=== PATIENT | female | born 1960 | race Two or more races ===

== ENCOUNTER 2017-06-17 13:53 | Emergency (ER) | payer MEDICAID ==
[~2017-06-17] VITALS: Ht 160 cm; Wt 73.5 kg
[2017-06-17] MEDS ORDERED: IBUPROFEN600 MG ORAL (15:08)
[2017-06-17 15:14] VITALS: BP 160/67
--- NOTE | 2017-06-17 15:40 | Diagnostic Imaging Report ---
Indication: pain Findings: 3 views of the left hand were obtained. Normal bony mineralization and alignment are demonstrated. No acute fractures, erosions, or periosteal reaction are seen. Soft tissues are unremarkable. Impression: Negative examination of the left hand.
--- NOTE | 2017-06-17 20:45 | Emergency Room Report ---
History of Present Illness General Chief Complaint: Upper Extremity Injury Source: Patient Present Illness [facility] The patient is a 57-year-old female presenting with left hand pain. She states that she was lifting an object at home today and felt her hands twist have been uncomfortable angle. Pain is now a 10/10 dull ache to the left mid hand and does not radiate. Worse with touch and movement. She denies any previous hand injury. She denies any numbness or tingling. She denies other symptoms including N, V, F, chills, SOB, rash Allergies: Coded Allergies: MORPHINE (Verified Allergy, Severe, 06/17/17) TACHYCARDIA AND FAINTING PER PT CODEINE (Verified Allergy, Intermediate, 06/17/17) ITCHING PER PT Patient History Past Medical History: see triage record Pertinent Family History: none Last Menstrual Period: n/a Reviewed Nursing Documentation: PMH: Agreed, PSxH: Agreed Nursing Documentation-PMH Past Medical History: No History, Except For Hx Hypertension: Yes Review of Systems All Other Systems: negative except mentioned in HPI Physical Exam Vital Signs Date Time Temp Pulse Resp B/P (MAP) Pulse Ox O2 Delivery O2 Flow Rate FiO2 06/17/17 14:24 97.3 82 21 160/67 96 Room Air Sp02 EP Interpretation: reviewed, normal General Appearance: no apparent distress, alert, GCS 15, non-toxic Head: normocephalic, atraumatic Eyes: bilateral eye normal inspection, bilateral eye PERRL ENT: hearing grossly normal, normal pharynx, no angioedema, normal voice Musculoskeletal: back normal, digits/nails normal, gait/station normal, normal range of motion, tender - TTP over the L 3rd Neurologic: alert, oriented x3, responsive, motor strength/tone normal, sensory intact, speech normal Psychiatric: judgement/insight normal, memory normal, mood/affect normal, no suicidal/homicidal ideation Skin: normal color, no rash, warm/dry, well hydrated Procedures Splinting Splinting : Consent: Verbal Location: L arm Pre-Made Type: plastic Splint: volar Pre-Proc Neuro Vasc Exam: normal Post-Proc Neuro Vasc Exam: normal Patient Tolerated: Well Complications: None Medical Decision Making PA Attestation Dr. Estrella is my supervising physician. Patient management was discussed with my supervising physician Diagnostic Impression: Primary Impression: Sprain of hand, left Qualified Codes: S63.92XA - Sprain of unspecified part of left wrist and hand , initial encounter ER Course The patient is a 57-year-old female presenting with left hand pain Ddx considered include but not limited to sprain/strain, fracture, contusion PE: NAD Musculoskeletal: There is tenderness to palpation over the left third mid metacarpal. No obvious deformity. Full active range of motion of the wrist and fingers. Sensation intact. No ecchymosis. X-ray of the hand is unremarkable. Volar splint is placed and the patient will follow up with primary doctor Other X-Ray Diagnostic Results Other X-Ray Diagnostic Results : X-Ray ordered: L hand # of Views/Limited Vs Complete: 3 View Indication: Pain EP Interpretation: Yes Interpretation: no dislocation, no soft tissue swelling, no fractures Impression: No acute disease Interpreting ER Provider: Samuel Estrella MD PA Scribe Text I am acting as scribe for my supervising physician. My supervising physician's interpretation of the L hand xrays are there are no fractures, dislocations or soft tissue swelling. Last Vital Signs Date Time Temp Pulse Resp B/P (MAP) Pulse Ox O2 Delivery O2 Flow Rate FiO2 06/17/17 15:14 97.3 21 160/67 96 Room Air 06/17/17 14:24 82 Status: improved Disposition: HOME, SELF-CARE Condition: Improved Scripts Ibuprofen* (MOTRIN*) 600 Mg Tablet 600 MG ORAL Q8H Y for For Pain, #30 TAB 0 Refills Prov: OLY CUMMINS 06/17/17 Referrals: MELANIEREFERRING (PCP) Patient Instructions: Wrist Sprain, Cast or Splint Care Additional Instructions: I discussed my findings with the patient. All questions and concerns have been answered. Treatment and medication compliance have been addressed. I advised the patient that they need to follow up with PMD in 3-5 days. Return to ED if pain remains or worsens, numbness or tingling occurs, new rash is noticed, fever is noticed, or if needed for any reason. Patient verbalized understanding of discharge instructions. OLY CUMMINS Jun 17, 2017 20:44
== END 2017-06-17 15:14 | disposition home or self-care (01) ==
LOC: EMR 14:42
DX: S63.92XA Sprain of unspecified part of left wrist and hand, initial encounter (principal); X50.0XXA Overexertion from strenuous movement or load, initial encounter; Y92.89 Other specified places as the place of occurrence of the external cause; I10 Essential (primary) hypertension; Z88.6 Allergy status to analgesic agent
CPT/HCPCS: 29125; 99283

== ENCOUNTER 2018-11-12 15:30 | Inpatient (IN) | payer OTHER ==
[~2018-11-12] VITALS: Ht 162.6 cm; Wt 68.9 kg
[~2018-11-12 15:30] MED LIST: CEFDINIR300 MG PO; FLAGYL500 MG ORAL; IBUPROFEN600 MG ORAL; LOSARTAN-HCTZ1 EAC2 ORAL; OMEGA-3 1,0001 EACH PO; PROTONIX40 MG ORAL
[2018-11-12 16:00] VITALS: BP 120/56
--- NOTE | 2018-11-12 16:00 | NUR ---
ED Nurse Note: pt walked in to ED with family member due to abdominal pain since this morning. pt denies n/v/d. per pt, pain feels like burning on whole abdomen. guarding and irritable noted. AAO x4. respirations even and non-labored noted. skin warm to touch. no open wound noted. pt denies eating any raw food or starting any new drug. on cardiac cath tech. will wait for the further order.
[2018-11-12] MEDS ORDERED: Ketorolac 30mg Inj IV ONE (16:15)
[2018-11-12 17:15] LABS: HEMATOCRIT 37.2 % (37.0-47.0); HEMOGLOBIN 12.4 G/DL (12.0-16.0); MEAN CORPUSCULAR VOLUME 92 FL (80-99); PLATELET COUNT 287 K/UL (150-450); RED BLOOD COUNT 4.04 M/UL (4.20-5.40); RED CELL DISTRIBUTION WIDTH 11.6 % (11.6-14.8); WHITE BLOOD COUNT 15.9 K/UL (4.8-10.8)
[2018-11-12 17:18] LABS: APPEARANCE,URINE CLEAR; BILIRUBIN, URINE NEGATIVE (NEGATIVE); GLUCOSE, URINE (UA) NEGATIVE (NEGATIVE); KETONES,URINE NEGATIVE (NEGATIVE); LEUKOCYTE ESTERASE ,URINE 1+ (NEGATIVE); NITRITE,URINE NEGATIVE (NEGATIVE); PH,URINE 6.5 (4.5-8.0); PROTEIN,URINE NEGATIVE (NEGATIVE); UROBILINOGEN,URINE NORMAL MG/DL (0.0-1.0)
[2018-11-12 17:19] LABS: NEUTROPHILS % (AUTO) 88.9 % (45.0-75.0)
[2018-11-12 17:20] LABS: BASOPHILS % (AUTO) 0.5 % (0.0-2.0); EOSINOPHILS % (AUTO) 0.2 % (0.0-3.0); LYMPHOCYTES % (AUTO) 6.2 % (20.0-45.0); MONOCYTES % (AUTO) 4.3 % (1.0-10.0)
[2018-11-12 17:22] LABS: ANION GAP 11 mmol/L (5-15); BLOOD UREA NITROGEN 16 mg/dL (7-18); CALCIUM 9.2 MG/DL (8.5-10.1); CARBON DIOXIDE 27 MMOL/L (21-32); CHLORIDE 100 MMOL/L (98-107); CREATININE 0.7 MG/DL (0.55-1.30); POTASSIUM 3.6 MMOL/L (3.5-5.1); SODIUM 138 MMOL/L (136-145)
[2018-11-12 17:23] LABS: COLOR,URINE YELLOW
[2018-11-12 17:26] LABS: ALANINE AMINOTRANSFERASE 27 U/L (12-78); ALBUMIN/GLOBULIN RATIO 1.1 (1.0-2.7); ALKALINE PHOSPHATASE 65 U/L (46-116); ASPARTATE AMINO TRANSFERASE 21 U/L (15-37); BILIRUBIN,TOTAL 0.4 MG/DL (0.2-1.0)
[2018-11-12 17:58] VITALS: BP 126/57
[2018-11-12] MEDS ORDERED: Isovue-300 100ml vial INJ PRN (18:00)
--- NOTE | 2018-11-12 18:01 | NUR ---
ED Nurse Note: pt lying in bed with eye closed. no facial grimacing or moaning noted. per pt, pain gets better. will wait for the further order.
--- NOTE | 2018-11-12 18:15 | NUR ---
ED Nurse Note: per pt, allergic to contrast. Dr. Estrella notified and change CT order to non-contrast.
--- NOTE | 2018-11-12 19:23 | NUR ---
HAND-OFF: Report given to CARMEL Carlton.
--- NOTE | 2018-11-12 19:30 | NUR ---
ED Nurse Note: RECIEVED PT ON [facility] AWAKE, ALERT AND ORIENTED X 4, PT CURRENTLY HAVING DICUSSION WITH MD ABOUT POSSIBLE ADMISSION, SURGERY OR LEAVING AMA, PT IS HERE FOR ABD PAIN AND APOPENDICITIS, PT HAS PATENT SALINE LOCK, V/S STABLE, DENEIS PAIN, WILL RESUME CARE ORDERED AND CONTINUE OT CLOSELY MONTIOR AND PREPARE FOR DISPOSIITION.
[2018-11-12] MEDS ORDERED: VITAMIN D1000 UNI1 ORAL (19:50)
[2018-11-12] MEDS ORDERED: LOSARTAN POTASS50 MG ORAL (19:50)
[2018-11-12 20:00] VITALS: BP 129/61
--- NOTE | 2018-11-12 20:01 | Emergency Room Report ---
History of Present Illness General Chief Complaint: Abdominal Pain Source: Patient Present Illness HPI 58-year-old female presents ED for evaluation. Patient complaining of abdominal pain 1 day. Burning, periumbilical, 7 out of 10, nonradiating. States that it is likely food related. States she ate some spicy food yesterday. Denies fevers or chills. Denies nausea or vomiting. Denies any diarrhea. No other aggravating relieving factors. Denies any other associated symptoms Allergies: Coded Allergies: CODEINE (Verified Allergy, Intermediate, 06/17/17) ITCHING PER PT MORPHINE (Verified Allergy, Unknown, 11/12/18) Uncoded Allergies: CONTRAST (Allergy, Unknown, 11/12/18) Patient History Past Medical History: HTN Past Surgical History: none Pertinent Family History: none Social History: Denies: smoking, alcohol use, drug use Last Menstrual Period: na Now: No Immunizations: UTD Reviewed Nursing Documentation: PMH: Agreed; PSxH: Agreed Nursing Documentation-PMH Past Medical History: No History, Except For Hx Cardiac Problems: Yes Hx Hypertension: Yes Hx Cancer: No Hx Gastrointestinal Problems: No Hx Neurological Problems: No Review of Systems All Other Systems: negative except mentioned in HPI Physical Exam Vital Signs Date Time Temp Pulse Resp B/P (MAP) Pulse Ox O2 Delivery O2 Flow Rate FiO2 11/12/18 15:52 98.2 59 18 146/92 98 Room Air Sp02 EP Interpretation: reviewed, normal General Appearance: no apparent distress, alert, GCS 15, non-toxic Head: normocephalic, atraumatic Eyes: bilateral eye normal inspection, bilateral eye PERRL ENT: hearing grossly normal, normal pharynx, no angioedema, normal voice Neck: full range of motion, supple/symm/no masses Respiratory: chest non-tender, lungs clear, normal breath sounds, speaking full sentences Cardiovascular #1: regular rate, rhythm, no edema Cardiovascular #2: 2+ carotid (R), 2+ carotid (L), 2+ radial (R), 2+ radial (L) , 2+ dorsalis pedis (R), 2+ dorsalis pedis (L) Gastrointestinal: normal bowel sounds, soft, non-distended, no guarding, no rebound, tenderness Rectal: deferred Genitourinary: normal inspection, no CVA tenderness Musculoskeletal: back normal, gait/station normal, normal range of motion, non- tender Neurologic: alert, oriented x3, responsive, motor strength/tone normal, sensory intact, speech normal Psychiatric: judgement/insight normal, memory normal, mood/affect normal, no suicidal/homicidal ideation Reflexes: 3+ bicep (R), 3+ bicep (L), 3+ tricep (R), 3+ tricep (L), 3+ knee (R) , 3+ knee (L) Skin: normal color, no rash, warm/dry, well hydrated Lymphatic: no adenopathy Medical Decision Making Diagnostic Impression: Primary Impression: Appendicitis Qualified Codes: K37 - Unspecified appendicitis ER Course Hospital Course 58 yo F presents with abd pain Differential diagnoses include: Appendicitis, cholecystitis, gastritis small bowel obstruction Clinical course Patient placed on stretcher. car hostler. After initial history and physical I ordered labs, IV fluids, UA, pain medication Labs - leukocytosis noted, Hb/Hct stable. electrolytes ok. UA unremarkable Patient continues to have pain. CT ordered CT abdomen and pelvis - appendicits, no perforation or abscess I reviewed EMR. Patient was seen here in April 2018. Also noted have appendicitis at that time patient was admitted but surgery ruled out appendicitis as pain was in the left lower quadrant At this time patient shows no right lower quadrant pain. per STAT RAD appendix appears unchanged from 2018 CT Discuss[address] with surgery Dr. Solis; agrees that patient would benefit from inpatient admission and serial exams. No antibiotics as per his request patient agrees to admission. Will be admitted to Dr. Reese. I feel this is a highly complex case requiring extensive working including EKG/ Rhythm strip, Xray/CT/US, Blood/urine lab work, repeat exams while in ED, and administration of strong opiates/narcotics for pain control, admission to hospital or close patient follow up. Diagnosis - appendicitis admitted to floor in serious condition Labs Test 11/12/18 16:00 11/12/18 16:40 Urine Color Yellow Urine Appearance Clear Urine pH 6.5 (4.5-8.0) Urine Specific [place] 1.010 (1.005-1.035) Urine Protein Negative (NEGATIVE) Urine Glucose (UA) Negative (NEGATIVE) Urine Ketones Negative (NEGATIVE) Urine Blood 2+ (NEGATIVE) Urine Nitrite Negative (NEGATIVE) Urine Bilirubin Negative (NEGATIVE) Urine Urobilinogen Normal MG/DL (0.0-1.0) Urine Leukocyte Esterase 1+ (NEGATIVE) Urine RBC 5-10 /HPF (0 - 2) Urine WBC 0-2 /HPF (0 - 2) Urine Squamous Epithelial Cells Few /LPF (NONE/OCC) Urine Bacteria Occasional /HPF (NONE) White Blood Count 15.9 K/UL (4.8-10.8) Red Blood Count 4.04 M/UL (4.20-5.40) Hemoglobin 12.4 G/DL (12.0-16.0) Hematocrit 37.2 % (37.0-47.0) Mean Corpuscular Volume 92 FL (80-99) Mean Corpuscular Hemoglobin 30.6 PG (27.0-31.0) Mean Corpuscular Hemoglobin Concent 33.3 G/DL (32.0-36.0) Red Cell Distribution Width 11.6 % (11.6-14.8) Platelet Count 287 K/UL (150-450) Mean Platelet Volume 7.5 FL (6.5-10.1) Neutrophils (%) (Auto) 88.9 % (45.0-75.0) Lymphocytes (%) (Auto) 6.2 % (20.0-45.0) Monocytes (%) (Auto) 4.3 % (1.0-10.0) Eosinophils (%) (Auto) 0.2 % (0.0-3.0) Basophils (%) (Auto) 0.5 % (0.0-2.0) Sodium Level 138 MMOL/L (136-145) Potassium Level 3.6 MMOL/L (3.5-5.1) Chloride Level 100 MMOL/L (98-107) Carbon Dioxide Level 27 MMOL/L (21-32) Anion Gap 11 mmol/L (5-15) Blood Urea Nitrogen 16 mg/dL (7-18) Creatinine 0.7 MG/DL (0.55-1.30) Estimat Glomerular Filtration Rate > 60 mL/min (>60) Glucose Level 119 MG/DL (74-106) Calcium Level 9.2 MG/DL (8.5-10.1) Total Bilirubin 0.4 MG/DL (0.2-1.0) Aspartate Amino Transf (AST/SGOT) 21 U/L (15-37) Alanine Aminotransferase (ALT/SGPT) 27 U/L (12-78) Alkaline Phosphatase 65 U/L (46-116) Total Protein 7.7 G/DL (6.4-8.2) Albumin 4.0 G/DL (3.4-5.0) Globulin 3.7 g/dL Albumin/Globulin Ratio 1.1 (1.0-2.7) Lipase 92 U/L (73-393) CT/MRI/US Diagnostic Results CT/MRI/US Diagnostic Results : Imaging Test Ordered: CT A/P Impression The appendix is markedly enlarged measuring 12 cm fluid-filled with periappendiceal inflammatory changes including some enhancement of the wall. No evidence for abscess or perforation. This finding was present on prior study of 05/01/18. Previously suggested appendicoliths are not seen in the appendix at this time. Last Vital Signs Date Time Temp Pulse Resp B/P (MAP) Pulse Ox O2 Delivery O2 Flow Rate FiO2 11/12/18 17:58 98.0 63 19 126/57 100 Room Air Status: improved Disposition: ADMITTED INPATIENT Condition: Serious Referrals: NON PHYSICIAN (PCP) Samuel Estrella MD Nov 12, 2018 20:01
[2018-11-12] MEDS ORDERED: Miralax 17gm pkt ORAL PRN (21:45)
[2018-11-12] MEDS ORDERED: Nitroglycerin Subl 0.4mg tab SL PRN (21:45)
--- NOTE | 2018-11-12 21:45 | NUR ---
ED Nurse Note: PT CONTINUES TO REST IN BED, AMBULATED TO BATHROOM, STEADY GAIT, TOLERATED WELL, PT CONTINUES TO DECLINE NEED FOR ANYTHING FOR PAIN, NOSOB ORLABORED BREATHING NOTED, PT HAS ROOM FOR ADMISSION, REPORT CALLED TO FLOOR NURSE CARMEL OTOOLE, PT FAMILY AT BEDSIDE, BELONGIINGS LIST COMPLETED, PT BEING TAKEN TO UNIT VIA GURNEY WITH ER-TECH.
[2018-11-12 21:59] VITALS: BP 134/83
--- NOTE | 2018-11-12 21:59 | NUR ---
NURSE NOTES Patient received from Bianka Johnson 58 Yrs old from ED . Patient c/o abdominal pain x1 day . patient states Burning in pre umbilical area. states it's food related states she ate some spicy foods yesterday. pain was controlled by padilla medications in ED and re asses with good relief . LAC G#20 H/L Patent and intact . no sob/ no n/v noted . patient family at bedside . patient personal belongings checked and signed . . patient MD notified patient location 311 bed 2 . call light within reach . bed in low psition at all times . will continue to jeison Addendum: 11/13/18 at 0500 by XIANG MAJOR LVN Patient ED c/o burning pre umbilical 7 out of 10. Toradol 30 mg IV once in ED . and reassess pain with good relief.Patient vss. afebrile . patient skin intact. will continue to monitor
[2018-11-12] MEDS: D5 1/2NS 1,000 ML IV SCH (22:39)
[2018-11-13] VITALS: BP 130/84
[2018-11-13] MEDS: Ketorolac 30mg Inj IV PRN ×2 (00:22→16:20)
[2018-11-13 04:00] VITALS: BP 110/67
[2018-11-13 07:19] LABS: BASOPHILS % (AUTO) 0.5 % (0.0-2.0); HEMATOCRIT 34.2 % (37.0-47.0); HEMOGLOBIN 11.5 G/DL (12.0-16.0); LYMPHOCYTES % (AUTO) 15.5 % (20.0-45.0); MEAN CORPUSCULAR VOLUME 92 FL (80-99); MONOCYTES % (AUTO) 5.7 % (1.0-10.0); NEUTROPHILS % (AUTO) 77.3 % (45.0-75.0); PLATELET COUNT 254 K/UL (150-450); RED BLOOD COUNT 3.72 M/UL (4.20-5.40); RED CELL DISTRIBUTION WIDTH 12.2 % (11.6-14.8); WHITE BLOOD COUNT 11.8 K/UL (4.8-10.8)
[2018-11-13 07:42] LABS: ALANINE AMINOTRANSFERASE 22 U/L (12-78); ALBUMIN 3.3 G/DL (3.4-5.0); ALKALINE PHOSPHATASE 59 U/L (46-116); AMYLASE 34 U/L (25-115); ANION GAP 7 mmol/L (5-15); ASPARTATE AMINO TRANSFERASE 19 U/L (15-37); BILIRUBIN,TOTAL 0.6 MG/DL (0.2-1.0); BLOOD UREA NITROGEN 14 mg/dL (7-18); CALCIUM 8.7 MG/DL (8.5-10.1); CARBON DIOXIDE 29 MMOL/L (21-32); CHLORIDE 104 MMOL/L (98-107); CREATININE 0.8 MG/DL (0.55-1.30); POTASSIUM 3.3 MMOL/L (3.5-5.1); SODIUM 139 MMOL/L (136-145)
--- NOTE | 2018-11-13 07:45 | NUR ---
HAND-OFF: Report given to Brett Johnson Patient in stable condition.
--- NOTE | 2018-11-13 07:45 | NUR ---
NURSE NOTES: Received patient on bed, awake. IV site intact and patent. Bed in low and locked position, call light within reach. No signs of respiratory distress or pain. Room board updated, will continue to monitor.
[2018-11-13 08:00] VITALS: BP 122/68
--- NOTE | 2018-11-13 08:30 | NUR ---
NURSE NOTES: Patient refused shceduled heparin dose. Risks versus benefits explained.
[2018-11-13] MEDS: Heparin 5000 units/ml inj SUBQ SCH ×2 (08:43→21:02)
[2018-11-13] MEDS: Pantoprazole Inj IVP SCH (08:43)
--- NOTE | 2018-11-13 09:43 | Consultation ---
History of Present Illness General Chief Complaint: Abdominal Pain Reason for Consultation: Appendicitis Present Illness HPI Ms. Platt is a 58 yo female with PMHx of Appendicits in 2018 and HTN who presented to the ED on 11/12/18 with abdominal pain. The patient has been present for 1 day. SHe thinks that it was due ot spicy food. She denies fevers, chills, diarrhea and N/V. CT scan shows nonperforated appendicits. Surgery was called and will see the patient. Surgery requested holding abx. The Patient has an initial leukocytosis of 15 and the WBC are now down to 12. She reports that the abdominal pain more burning in nature and the B/L Lower quadrants. It has been getting better. ID consulted for Appendicitis PMHx/PSHx Appendicitis HTN SocHx No E/T/D FamHx Not contributory Allergies: Coded Allergies: CODEINE (Verified Allergy, Intermediate, 06/17/17) ITCHING PER PT MORPHINE (Verified Allergy, Unknown, 11/12/18) Uncoded Allergies: CONTRAST (Allergy, Unknown, 11/12/18) Medication History Scheduled Cholecalciferol (Vitamin D3)* (Vitamin D*), Unknown Dose ORAL DAILY, (Reported) Losartan Potassium* (Losartan Potassium*), 50 MG ORAL DAILY, (Reported) [place]-3 Fatty Acids/Fish Oil ([place]-3 1,000 Mg Softgel), 1 EACH PO DAILY, ( Reported) Discontinued Medications Cefdinir (Cefdinir), 300 MG PO BID, (Reported) Discontinued Reason: Therapy completed Losartan/Hydrochlorothiazide (Losartan-Hctz 50-12.5 Mg Tab), 1 TAB ORAL DAILY, ( Reported) Discontinued Reason: Therapy completed Metronidazole* (Flagyl*), 500 MG ORAL TID, (Reported) Discontinued Reason: Therapy completed Pantoprazole* (Protonix*), 40 MG ORAL DAILY, (Reported) Discontinued Reason: Therapy completed Patient History Healthcare decision maker Resuscitation status Full Code Advanced Directive on File No Review of Systems ROS Narrative 12 point ROS negative except as note in the HPI. Physical Exam Last 24 Hour Vital Signs Date Time Temp Pulse Resp B/P (MAP) Pulse Ox O2 Delivery O2 Flow Rate FiO2 11/13/18 08:00 98.1 74 20 122/68 (86) 95 11/13/18 04:00 98.0 75 20 110/67 (81) 99 11/13/18 00:52 98.4 11/13/18 00:00 97.2 80 20 130/84 (99) 100 11/12/18 22:12 Room Air 11/12/18 21:59 98.4 83 18 134/83 (100) 100 11/12/18 21:53 98.4 67 18 129/61 100 Room Air 11/12/18 20:00 98.4 67 18 129/61 100 Room Air 11/12/18 17:58 98.0 63 19 126/57 100 Room Air 11/12/18 16:00 98.1 62 20 120/56 100 Room Air 11/12/18 16:00 62 20 Room Air 11/12/18 15:52 98.2 59 18 146/92 98 Room Air Intake and Output 11/12/18 11/13/18 19:00 07:00 Intake Total 1000 ml 525 ml Balance 1000 ml 525 ml Intake IV Total 1000 ml 525 ml # Voids 1 2 Laboratory Tests Test 11/12/18 16:00 11/12/18 16:40 11/13/18 05:40 Urine Color Yellow Urine Appearance Clear Urine pH 6.5 (4.5-8.0) Urine Specific [place] 1.010 (1.005-1.035) Urine Protein Negative (NEGATIVE) Urine Glucose (UA) Negative (NEGATIVE) Urine Ketones Negative (NEGATIVE) Urine Blood 2+ (NEGATIVE) H Urine Nitrite Negative (NEGATIVE) Urine Bilirubin Negative (NEGATIVE) Urine Urobilinogen Normal MG/DL (0.0-1.0) Urine Leukocyte Esterase 1+ (NEGATIVE) H Urine RBC 5-10 /HPF (0 - 2) H Urine WBC 0-2 /HPF (0 - 2) Urine Squamous Epithelial Cells Few /LPF (NONE/OCC) Urine Bacteria Occasional /HPF (NONE) White Blood Count 15.9 K/UL (4.8-10.8) H 11.8 K/UL (4.8-10.8) H Red Blood Count 4.04 M/UL (4.20-5.40) L 3.72 M/UL (4.20-5.40) L Hemoglobin 12.4 G/DL (12.0-16.0) 11.5 G/DL (12.0-16.0) L Hematocrit 37.2 % (37.0-47.0) 34.2 % (37.0-47.0) L Mean Corpuscular Volume 92 FL (80-99) 92 FL (80-99) Mean Corpuscular Hemoglobin 30.6 PG (27.0-31.0) 30.8 PG (27.0-31.0) Mean Corpuscular Hemoglobin Concent 33.3 G/DL (32.0-36.0) 33.5 G/DL (32.0-36.0) Red Cell Distribution Width 11.6 % (11.6-14.8) 12.2 % (11.6-14.8) Platelet Count 287 K/UL (150-450) 254 K/UL (150-450) Mean Platelet Volume 7.5 FL (6.5-10.1) 8.0 FL (6.5-10.1) Neutrophils (%) (Auto) 88.9 % (45.0-75.0) H 77.3 % (45.0-75.0) H Lymphocytes (%) (Auto) 6.2 % (20.0-45.0) L 15.5 % (20.0-45.0) L Monocytes (%) (Auto) 4.3 % (1.0-10.0) 5.7 % (1.0-10.0) Eosinophils (%) (Auto) 0.2 % (0.0-3.0) 1.0 % (0.0-3.0) Basophils (%) (Auto) 0.5 % (0.0-2.0) 0.5 % (0.0-2.0) Sodium Level 138 MMOL/L (136-145) 139 MMOL/L (136-145) Potassium Level 3.6 MMOL/L (3.5-5.1) 3.3 MMOL/L (3.5-5.1) L Chloride Level 100 MMOL/L (98-107) 104 MMOL/L (98-107) Carbon Dioxide Level 27 MMOL/L (21-32) 29 MMOL/L (21-32) Anion Gap 11 mmol/L (5-15) 7 mmol/L (5-15) Blood Urea Nitrogen 16 mg/dL (7-18) 14 mg/dL (7-18) Creatinine 0.7 MG/DL (0.55-1.30) 0.8 MG/DL (0.55-1.30) Estimat Glomerular Filtration Rate > 60 mL/min (>60) > 60 mL/min (>60) Glucose Level 119 MG/DL (74-106) H 109 MG/DL (74-106) H Calcium Level 9.2 MG/DL (8.5-10.1) 8.7 MG/DL (8.5-10.1) Total Bilirubin 0.4 MG/DL (0.2-1.0) 0.6 MG/DL (0.2-1.0) Aspartate Amino Transf (AST/SGOT) 21 U/L (15-37) 19 U/L (15-37) Alanine Aminotransferase (ALT/SGPT) 27 U/L (12-78) 22 U/L (12-78) Alkaline Phosphatase 65 U/L (46-116) 59 U/L (46-116) Total Protein 7.7 G/DL (6.4-8.2) 6.7 G/DL (6.4-8.2) Albumin 4.0 G/DL (3.4-5.0) 3.3 G/DL (3.4-5.0) L Globulin 3.7 g/dL 3.4 g/dL Albumin/Globulin Ratio 1.1 (1.0-2.7) 1.0 (1.0-2.7) Lipase 92 U/L (73-393) 85 U/L (73-393) Activated Partial Thromboplast Time 28 SEC (23-33) Amylase Level 34 U/L (25-115) Height (Feet): 5 Height (Inches): 4.00 Weight (Pounds): 152 Medications Current Medications Medications (Trade) Dose Ordered Sig/Miguelito Route PRN Reason Start Time Stop Time Status Last Admin Dose Admin Acetaminophen (Tylenol) 650 mg Q4H PRN ORAL fever 11/12/18 21:45 12/12/18 21:44 Al Hydroxide/Mg Hydroxide (Mylanta II) 30 ml Q6H PRN ORAL dyspepsia 11/12/18 21:45 12/12/18 21:44 Dextrose (Dextrose 50%) 25 ml Q30M PRN IV Hypoglycemia 11/12/18 21:45 12/12/18 21:44 Dextrose (Dextrose 50%) 50 ml Q30M PRN IV Hypoglycemia 11/12/18 21:45 12/12/18 21:44 Dextrose/Sodium Chloride 1,000 ml @ 75 mls/hr [id number] IV 11/12/18 22:00 12/12/18 21:59 11/12/18 22:39 Diphenhydramine HCl (Benadryl) 25 mg Q6H PRN ORAL Itching/Pruritis 11/12/18 21:45 12/12/18 21:44 Heparin Sodium (Porcine) (Heparin 5000 units/ml) 5,000 units EVERY 12 HOURS SUBQ 11/13/18 09:00 12/13/18 08:59 Iopamidol (Isovue-300 100ml) 100 ml NOW PRN INJ Radiology Procedure 11/12/18 18:00 Ketorolac Tromethamine (Toradol 30mg) 30 mg Q6H PRN IV For Pain 11/12/18 23:00 11/17/18 22:59 11/13/18 00:22 Nitroglycerin (Ntg) 0.4 mg Q5M PRN SL Prn Chest Pain 11/12/18 21:45 12/12/18 21:44 Ondansetron HCl (Zofran) 4 mg Q6H PRN IVP Nausea & Vomiting 11/12/18 21:45 12/12/18 21:44 Pantoprazole (Protonix) 40 mg DAILY IVP 11/13/18 09:00 12/13/18 08:59 11/13/18 08:43 Polyethylene Glycol (Miralax) 17 gm HSPRN PRN ORAL Constipation 11/12/18 21:45 12/12/18 21:44 Temazepam (Restoril) 15 mg HSPRN PRN ORAL Insomnia 11/12/18 21:45 11/19/18 21:44 Objective Narrative Gen: NAD, Some abd pain HEENT: NCAT, MMM, EOMI, PERRL, No Oral lesion, no scleral icterus NECK: full range of motion, supple, no meningismus, No LAD, No JVD LUNGS: CTAB, No W/C, No Accessory muscle use CARDS: RRR, S1, S2, No M/R/G, ABD: Soft, TTP B/L Lower quadrants, ND, No R/G, + BS, No HSM, No Masses : Deferred Ext: C/C/E, Pulses 2+ B/L (DP, Rad) NEURO: A/O x 3, Strength and Sensation Grossly intact SKIN: Warm/dry, No rashes Assessment/Plan Assessment/Plan 58 yo female with PMHx of Appendicits in 2018 and HTN who presented to the ED on 11/12/18 with abdominal pain. Appendicitis Surgery on board CT 11/12/18 The appendix is markedly enlarged measuring 12 cm fluid-filled with periappendiceal inflammatory changes including some enhancement of the wall. No evidence for abscess or perforation. No Antibiotics per surgery request PLAN - Monitor off abx as patient clinically stable - f/u surgery recs - Monitor CBC and Temps Thank you for this consult. We will continue to follow the patient during this hospitalization. Brett Chamberlain MD Nov 13, 2018 09:43
--- NOTE | 2018-11-13 09:51 | Diagnostic Imaging Report ---
Indication: Abdominal pain since this morning, burning in all abdomen. Guarding Technique: Spiral acquisitions obtained through the abdomen and pelvis. No oral contrast utilized, per emergency room physician request No IV contrast utilized, per referring physician request.. Multiplanar reconstructions were generated. Total dose length product 877.95 mGycm. CTDIvol(s) 17.25 mGy. Dose reduction achieved using automated exposure control Comparison: 05/01/2018 Findings: The appendix is enlarged, measuring 14 mm in diameter. There is some inflammation of the periappendiceal fat. Note that the appendix was also enlarged on the prior exam, appears slightly more so currently. Previously reported appendicoliths are not evident currently No associated gas or fluid collections demonstrated There is colonic diverticulosis. No evidence of diverticulitis. No free or loculated intraperitoneal gas or fluid is evident. There is a tiny fat-containing umbilical hernia. No small bowel distention. The distal esophagus, stomach, duodenum are unremarkable. There are small fat-containing Bochdalek hernias bilaterally. The liver, gallbladder, bile ducts, pancreas, spleen, adrenals are all unremarkable. The right kidney demonstrates one or more subcentimeter low-attenuation lesions which are too small to characterize, most likely benign simple cysts. The uterus is absent. No pelvic mass or adenopathy. The included lung bases are clear. The bones demonstrate degenerative spondylosis changes. Impression: Enlarged appendix with mild periappendiceal inflammation, consistent with acute appendicitis. Note, however, presence of similar findings on prior study of 05/01/2018 Colonic diverticulosis. No evidence of diverticulitis Equivocal subcentimeter low-attenuation right renal lesions, too small to characterize, most likely benign simple cysts Other findings as noted, including tiny fat-containing umbilical hernia, small bilateral fat-containing Bochdalek hernias, evidence of prior hysterectomy, degenerative spondylosis This agrees with the preliminary interpretation provided overnight by [facility] teleradiology service. The CT scanner at [facility] is accredited by the [employer] and the scans are performed using protocols designed to limit radiation exposure to as low as reasonably achievable to attain images of sufficient resolution adequate for diagnostic evaluation.
--- NOTE | 2018-11-13 11:30 | GI Initial Consult Note ---
History of Present Illness General Date patient seen: Nov 13, 2018 Time patient seen: 11:22 Reason for Hospitalization: Abdominal Pain Referring physician: AMERICA OTTO Reason for Consultation: Appendicitis Present Illness HPI 58-year-old female presents ED for evaluation. Patient complaining of abdominal pain 1 day. Burning, periumbilical, 7 out of 10, nonradiating. States that it is likely food related. States she ate some spicy food yesterday. Denies fevers or chills. Denies nausea or vomiting. Denies any diarrhea. No other aggravating relieving factors. Denies any other associated symptoms GI consulted for abdominal pain. Pt seen, awake A&Ox4 has c/o of generalized abdominal pain. No RLQ pain. Abdomen is soft, non distended, non tender to palpation. No active N/V nor diarrhea. The patient believes her stomach issue is due to intake of spicy foods. Patient states she had recurrent admission for similar condition where her CT showed that she had appendicitis. No history of endoscopy nor colonoscopy. Home Meds Reported Medications Losartan Potassium* (LOSARTAN POTASSIUM*) 50 Mg Tablet, 50 MG ORAL DAILY, TAB 11/12/18 Cholecalciferol (Vitamin D3)* (VITAMIN D*) 1,000 Unit Tablet, ORAL DAILY, TAB 11/12/18 [place]-3 Fatty Acids/Fish Oil (OMEGA-3 1,000 MG SOFTGEL) 1 Each Capsule, 1 EACH PO DAILY 05/01/18 Discontinued Reported Medications Pantoprazole* (PROTONIX*) 40 Mg Tablet.dr, 40 MG ORAL DAILY, #30 TAB 05/04/18 Cefdinir (CEFDINIR) 300 Mg Capsule, 300 MG PO BID for 11 Days, #22 CAP 05/04/18 Metronidazole* (FLAGYL*) 500 Mg Tablet, 500 MG ORAL TID for 11 Days, #33 TAB 05/04/18 Losartan/Hydrochlorothiazide (LOSARTAN-HCTZ 50-12.5 MG TAB) 1 Each Tablet, 1 TAB ORAL DAILY 05/01/18 Med list reviewed/reconciled: Yes Allergies: Coded Allergies: CODEINE (Verified Allergy, Intermediate, 06/17/17) ITCHING PER PT MORPHINE (Verified Allergy, Unknown, 11/12/18) Uncoded Allergies: CONTRAST (Allergy, Unknown, 11/12/18) Patient History History Provided By: Patient, Medical Record PMH Narrative Past Medical History: HTN Past Surgical History: none Pertinent Family History: none Social History: Denies: smoking, alcohol use, drug use Last Menstrual Period: na Now: No Immunizations: UTD Reviewed Nursing Documentation: PMH: Agreed; PSxH: Agreed Nursing Documentation-PMH Past Medical History: No History, Except For Hx Cardiac Problems: Yes Hx Hypertension: Yes Hx Cancer: No Hx Gastrointestinal Problems: No Hx Neurological Problems: No Social History: Denies: smoking, alcohol use, drug use, other Review of Systems All Other Systems: negative except mentioned in HPI Physical Exam Vital Signs Date Time Temp Pulse Resp B/P (MAP) Pulse Ox O2 Delivery O2 Flow Rate FiO2 11/12/18 15:52 98.2 59 18 146/92 98 Room Air Sp02 EP Interpretation: reviewed, normal Labs Laboratory Tests Test 11/12/18 16:00 11/12/18 16:40 11/13/18 05:40 Urine Color Yellow Urine Appearance Clear Urine pH 6.5 (4.5-8.0) Urine Specific [place] 1.010 (1.005-1.035) Urine Protein Negative (NEGATIVE) Urine Glucose (UA) Negative (NEGATIVE) Urine Ketones Negative (NEGATIVE) Urine Blood 2+ (NEGATIVE) H Urine Nitrite Negative (NEGATIVE) Urine Bilirubin Negative (NEGATIVE) Urine Urobilinogen Normal MG/DL (0.0-1.0) Urine Leukocyte Esterase 1+ (NEGATIVE) H Urine RBC 5-10 /HPF (0 - 2) H Urine WBC 0-2 /HPF (0 - 2) Urine Squamous Epithelial Cells Few /LPF (NONE/OCC) Urine Bacteria Occasional /HPF (NONE) White Blood Count 15.9 K/UL (4.8-10.8) H 11.8 K/UL (4.8-10.8) H Red Blood Count 4.04 M/UL (4.20-5.40) L 3.72 M/UL (4.20-5.40) L Hemoglobin 12.4 G/DL (12.0-16.0) 11.5 G/DL (12.0-16.0) L Hematocrit 37.2 % (37.0-47.0) 34.2 % (37.0-47.0) L Mean Corpuscular Volume 92 FL (80-99) 92 FL (80-99) Mean Corpuscular Hemoglobin 30.6 PG (27.0-31.0) 30.8 PG (27.0-31.0) Mean Corpuscular Hemoglobin Concent 33.3 G/DL (32.0-36.0) 33.5 G/DL (32.0-36.0) Red Cell Distribution Width 11.6 % (11.6-14.8) 12.2 % (11.6-14.8) Platelet Count 287 K/UL (150-450) 254 K/UL (150-450) Mean Platelet Volume 7.5 FL (6.5-10.1) 8.0 FL (6.5-10.1) Neutrophils (%) (Auto) 88.9 % (45.0-75.0) H 77.3 % (45.0-75.0) H Lymphocytes (%) (Auto) 6.2 % (20.0-45.0) L 15.5 % (20.0-45.0) L Monocytes (%) (Auto) 4.3 % (1.0-10.0) 5.7 % (1.0-10.0) Eosinophils (%) (Auto) 0.2 % (0.0-3.0) 1.0 % (0.0-3.0) Basophils (%) (Auto) 0.5 % (0.0-2.0) 0.5 % (0.0-2.0) Sodium Level 138 MMOL/L (136-145) 139 MMOL/L (136-145) Potassium Level 3.6 MMOL/L (3.5-5.1) 3.3 MMOL/L (3.5-5.1) L Chloride Level 100 MMOL/L (98-107) 104 MMOL/L (98-107) Carbon Dioxide Level 27 MMOL/L (21-32) 29 MMOL/L (21-32) Anion Gap 11 mmol/L (5-15) 7 mmol/L (5-15) Blood Urea Nitrogen 16 mg/dL (7-18) 14 mg/dL (7-18) Creatinine 0.7 MG/DL (0.55-1.30) 0.8 MG/DL (0.55-1.30) Estimat Glomerular Filtration Rate > 60 mL/min (>60) > 60 mL/min (>60) Glucose Level 119 MG/DL (74-106) H 109 MG/DL (74-106) H Calcium Level 9.2 MG/DL (8.5-10.1) 8.7 MG/DL (8.5-10.1) Total Bilirubin 0.4 MG/DL (0.2-1.0) 0.6 MG/DL (0.2-1.0) Aspartate Amino Transf (AST/SGOT) 21 U/L (15-37) 19 U/L (15-37) Alanine Aminotransferase (ALT/SGPT) 27 U/L (12-78) 22 U/L (12-78) Alkaline Phosphatase 65 U/L (46-116) 59 U/L (46-116) Total Protein 7.7 G/DL (6.4-8.2) 6.7 G/DL (6.4-8.2) Albumin 4.0 G/DL (3.4-5.0) 3.3 G/DL (3.4-5.0) L Globulin 3.7 g/dL 3.4 g/dL Albumin/Globulin Ratio 1.1 (1.0-2.7) 1.0 (1.0-2.7) Lipase 92 U/L (73-393) 85 U/L (73-393) Activated Partial Thromboplast Time 28 SEC (23-33) Amylase Level 34 U/L (25-115) General Appearance: well appearing, no apparent distress, alert, obese Head: normocephalic EENT: PERRL/EOMI, normal ENT inspection Neck: supple Respiratory: normal breath sounds, no respiratory distress Cardiovascular: normal rate Gastrointestinal: normal inspection, non tender, soft, normal bowel sounds, non -distended Rectal: deferred Genitourinary: no CVA tenderness Musculoskeletal: normal inspection, back normal Neurologic: normal inspection, alert, oriented x3, responsive Psychiatric: normal inspection, judgement/insight normal, memory normal Skin: normal inspection, normal color, no rash, warm/dry, palpation normal, well hydrated Lymphatic: normal inspection, no adenopathy Current Medications Current Medications Medications (Trade) Dose Ordered Sig/Miguelito Route PRN Reason Start Time Stop Time Status Last Admin Dose Admin Acetaminophen (Tylenol) 650 mg Q4H PRN ORAL fever 11/12/18 21:45 12/12/18 21:44 Al Hydroxide/Mg Hydroxide (Mylanta II) 30 ml Q6H PRN ORAL dyspepsia 11/12/18 21:45 12/12/18 21:44 Dextrose (Dextrose 50%) 25 ml Q30M PRN IV Hypoglycemia 11/12/18 21:45 12/12/18 21:44 Dextrose (Dextrose 50%) 50 ml Q30M PRN IV Hypoglycemia 11/12/18 21:45 12/12/18 21:44 Dextrose/Sodium Chloride 1,000 ml @ 75 mls/hr [id number] IV 11/12/18 22:00 12/12/18 21:59 11/12/18 22:39 Diphenhydramine HCl (Benadryl) 25 mg Q6H PRN ORAL Itching/Pruritis 11/12/18 21:45 12/12/18 21:44 Heparin Sodium (Porcine) (Heparin 5000 units/ml) 5,000 units EVERY 12 HOURS SUBQ 11/13/18 09:00 12/13/18 08:59 Iopamidol (Isovue-300 100ml) 100 ml NOW PRN INJ Radiology Procedure 11/12/18 18:00 Ketorolac Tromethamine (Toradol 30mg) 30 mg Q6H PRN IV For Pain 11/12/18 23:00 11/17/18 22:59 11/13/18 00:22 Nitroglycerin (Ntg) 0.4 mg Q5M PRN SL Prn Chest Pain 11/12/18 21:45 12/12/18 21:44 Ondansetron HCl (Zofran) 4 mg Q6H PRN IVP Nausea & Vomiting 11/12/18 21:45 12/12/18 21:44 Pantoprazole (Protonix) 40 mg DAILY IVP 11/13/18 09:00 12/13/18 08:59 11/13/18 08:43 Polyethylene Glycol (Miralax) 17 gm HSPRN PRN ORAL Constipation 11/12/18 21:45 12/12/18 21:44 Temazepam (Restoril) 15 mg HSPRN PRN ORAL Insomnia 11/12/18 21:45 11/19/18 21:44 GI: Plan Problems: (1) Abdominal pain (2) Appendicitis Plan CT reviewed. Suggestive of appendicitis. No evidence of diverticulitis Normocytic anemia Maintain n.p.o. plus IV fluids Follow-up with surgical recommendations anemia work up OB stool r/o GI bleed monitor H&H, prn transfusions bowel regime Pain management GI cocktail as needed ppi fu labs Recommend EGD colonoscopy as outpatient Discussed with Dr. Leigh. Thank you for this patient referral, we will follow. The patient was seen and examined at bedside and all new and available data was reviewed in the patients chart. I agree with the above findings, impression and plan. (Patient seen earlier today. Signature stamp does not reflect patient encounter time.). - MD Isabel [facility] [place] T[facility] Nov 13, 2018 11:30
[2018-11-13 12:00] VITALS: BP 123/62
--- NOTE | 2018-11-13 12:20 | Consultation ---
History of Present Illness General Date patient seen: Nov 13, 2018 Chief Complaint: Abdominal Pain Referring physician: AMERICA OTTO Reason for Consultation: Appendicitis Present Illness HPI 58 year old female presented with complaints of lower abdominal "burning" sensation. States had some chillies a few days ago and since developed lower abdominal burning sensation. some pain. no n/v/f/c. came to ED for eval. noted to have leukocytosis, uti, and ct with possible appendicitis. surgery called to evaluate. admitted for monitoring. today improved and labs improved. no pain just burning sensation. Had similar episode last year and CT was the same. Allergies: Coded Allergies: CODEINE (Verified Allergy, Intermediate, 06/17/17) ITCHING PER PT MORPHINE (Verified Allergy, Unknown, 11/12/18) Uncoded Allergies: CONTRAST (Allergy, Unknown, 11/12/18) Medication History Scheduled Cholecalciferol (Vitamin D3)* (Vitamin D*), Unknown Dose ORAL DAILY, (Reported) Losartan Potassium* (Losartan Potassium*), 50 MG ORAL DAILY, (Reported) [place]-3 Fatty Acids/Fish Oil (K[place]-3 1,000 Mg Softgel), 1 EACH PO DAILY, ( Reported) Discontinued Medications Cefdinir (Cefdinir), 300 MG PO BID, (Reported) Discontinued Reason: Therapy completed Losartan/Hydrochlorothiazide (Losartan-Hctz 50-12.5 Mg Tab), 1 TAB ORAL DAILY, ( Reported) Discontinued Reason: Therapy completed Metronidazole* (Flagyl*), 500 MG ORAL TID, (Reported) Discontinued Reason: Therapy completed Pantoprazole* (Protonix*), 40 MG ORAL DAILY, (Reported) Discontinued Reason: Therapy completed Patient History History Provided By: Patient, Medical Record, PMD Healthcare decision maker Resuscitation status Full Code Advanced Directive on File No Past Medical/Surgical History Past Medical/Surgical History: (1) Sprain of hand, left (2) Appendicitis (3) Abdominal pain Review of Systems Constitutional: Denies: no symptoms, see HPI, chills, sweats, fever, malaise, weakness, other Eye: Denies: no symptoms, see HPI, eye pain, blurred vision, tearing, double vision, nose pain, nose congestion, acuity changes, discharge, other ENT: Denies: no symptoms, see HPI, ear pain, ear discharge, nose pain, nose congestion, throat pain, throat swelling, mouth pain, hearing loss, nasal discharge, other Respiratory: Denies: no symptoms, see HPI, cough, orthopnea, shortness of breath, stridor, wheezing, AREVALO, sputum, other Cardiovascular: Denies: no symptoms, see HPI, chest pain, edema, palpitations, syncope, PND, other Gastrointestinal: Reports: see HPI Genitourinary: Denies: no symptoms, see HPI, discharge, dysuria, frequency, hematuria, pain, retention, incontinence, urgency, vag bleed/dc, other Musculoskeletal: Denies: no symptoms, see HPI, back pain, gout, joint pain, joint swelling, muscle pain, muscle stiffness, other Neurological: Denies: no symptoms, see HPI, headache, numbness, paresthesia, seizure, tingling, tremors, focal weakness, syncope, dizziness, other Endocrine: Denies: no symptoms, see HPI, excessive sweating, flushing, intolerance to temperature, increased thirst, increased urine, unexplained weight loss, other Hematologic/Lymphatic: Denies: no symptoms, see HPI, anemia, blood clots, easy bleeding, easy bruising, swollen glands, diathesis, other All Other Systems: negative except mentioned in HPI Physical Exam General Appearance: no apparent distress, alert Lines, tubes and drains: peripheral HEENT: mucous membranes moist Neck: normal inspection Respiratory/Chest: lungs clear, normal breath sounds, no respiratory distress Cardiovascular/Chest: normal rate Abdomen: normal bowel sounds, non tender, soft, no organomegaly, no mass Extremities: non-tender, normal inspection Skin Exam: warm/dry Neurologic: alert, oriented x 3 Last 24 Hour Vital Signs Date Time Temp Pulse Resp B/P (MAP) Pulse Ox O2 Delivery O2 Flow Rate FiO2 11/13/18 09:00 Room Air 11/13/18 08:00 98.1 74 20 122/68 (86) 95 11/13/18 04:00 98.0 75 20 110/67 (81) 99 11/13/18 00:52 98.4 11/13/18 00:00 97.2 80 20 130/84 (99) 100 11/12/18 22:12 Room Air 11/12/18 21:59 98.4 83 18 134/83 (100) 100 11/12/18 21:53 98.4 67 18 129/61 100 Room Air 11/12/18 20:00 98.4 67 18 129/61 100 Room Air 11/12/18 17:58 98.0 63 19 126/57 100 Room Air 11/12/18 16:00 98.1 62 20 120/56 100 Room Air 11/12/18 16:00 62 20 Room Air 11/12/18 15:52 98.2 59 18 146/92 98 Room Air Intake and Output 11/12/18 11/13/18 19:00 07:00 Intake Total 1000 ml 525 ml Balance 1000 ml 525 ml Intake IV Total 1000 ml 525 ml # Voids 1 2 Laboratory Tests Test 11/12/18 16:00 11/12/18 16:40 11/13/18 05:40 Urine Color Yellow Urine Appearance Clear Urine pH 6.5 (4.5-8.0) Urine Specific [place] 1.010 (1.005-1.035) Urine Protein Negative (NEGATIVE) Urine Glucose (UA) Negative (NEGATIVE) Urine Ketones Negative (NEGATIVE) Urine Blood 2+ (NEGATIVE) H Urine Nitrite Negative (NEGATIVE) Urine Bilirubin Negative (NEGATIVE) Urine Urobilinogen Normal MG/DL (0.0-1.0) Urine Leukocyte Esterase 1+ (NEGATIVE) H Urine RBC 5-10 /HPF (0 - 2) H Urine WBC 0-2 /HPF (0 - 2) Urine Squamous Epithelial Cells Few /LPF (NONE/OCC) Urine Bacteria Occasional /HPF (NONE) White Blood Count 15.9 K/UL (4.8-10.8) H 11.8 K/UL (4.8-10.8) H Red Blood Count 4.04 M/UL (4.20-5.40) L 3.72 M/UL (4.20-5.40) L Hemoglobin 12.4 G/DL (12.0-16.0) 11.5 G/DL (12.0-16.0) L Hematocrit 37.2 % (37.0-47.0) 34.2 % (37.0-47.0) L Mean Corpuscular Volume 92 FL (80-99) 92 FL (80-99) Mean Corpuscular Hemoglobin 30.6 PG (27.0-31.0) 30.8 PG (27.0-31.0) Mean Corpuscular Hemoglobin Concent 33.3 G/DL (32.0-36.0) 33.5 G/DL (32.0-36.0) Red Cell Distribution Width 11.6 % (11.6-14.8) 12.2 % (11.6-14.8) Platelet Count 287 K/UL (150-450) 254 K/UL (150-450) Mean Platelet Volume 7.5 FL (6.5-10.1) 8.0 FL (6.5-10.1) Neutrophils (%) (Auto) 88.9 % (45.0-75.0) H 77.3 % (45.0-75.0) H Lymphocytes (%) (Auto) 6.2 % (20.0-45.0) L 15.5 % (20.0-45.0) L Monocytes (%) (Auto) 4.3 % (1.0-10.0) 5.7 % (1.0-10.0) Eosinophils (%) (Auto) 0.2 % (0.0-3.0) 1.0 % (0.0-3.0) Basophils (%) (Auto) 0.5 % (0.0-2.0) 0.5 % (0.0-2.0) Sodium Level 138 MMOL/L (136-145) 139 MMOL/L (136-145) Potassium Level 3.6 MMOL/L (3.5-5.1) 3.3 MMOL/L (3.5-5.1) L Chloride Level 100 MMOL/L (98-107) 104 MMOL/L (98-107) Carbon Dioxide Level 27 MMOL/L (21-32) 29 MMOL/L (21-32) Anion Gap 11 mmol/L (5-15) 7 mmol/L (5-15) Blood Urea Nitrogen 16 mg/dL (7-18) 14 mg/dL (7-18) Creatinine 0.7 MG/DL (0.55-1.30) 0.8 MG/DL (0.55-1.30) Estimat Glomerular Filtration Rate > 60 mL/min (>60) > 60 mL/min (>60) Glucose Level 119 MG/DL (74-106) H 109 MG/DL (74-106) H Calcium Level 9.2 MG/DL (8.5-10.1) 8.7 MG/DL (8.5-10.1) Total Bilirubin 0.4 MG/DL (0.2-1.0) 0.6 MG/DL (0.2-1.0) Aspartate Amino Transf (AST/SGOT) 21 U/L (15-37) 19 U/L (15-37) Alanine Aminotransferase (ALT/SGPT) 27 U/L (12-78) 22 U/L (12-78) Alkaline Phosphatase 65 U/L (46-116) 59 U/L (46-116) Total Protein 7.7 G/DL (6.4-8.2) 6.7 G/DL (6.4-8.2) Albumin 4.0 G/DL (3.4-5.0) 3.3 G/DL (3.4-5.0) L Globulin 3.7 g/dL 3.4 g/dL Albumin/Globulin Ratio 1.1 (1.0-2.7) 1.0 (1.0-2.7) Lipase 92 U/L (73-393) 85 U/L (73-393) Activated Partial Thromboplast Time 28 SEC (23-33) Amylase Level 34 U/L (25-115) Height (Feet): 5 Height (Inches): 4.00 Weight (Pounds): 152 Medications Current Medications Medications (Trade) Dose Ordered Sig/Miguelito Route PRN Reason Start Time Stop Time Status Last Admin Dose Admin Acetaminophen (Tylenol) 650 mg Q4H PRN ORAL fever 11/12/18 21:45 12/12/18 21:44 Al Hydroxide/Mg Hydroxide (Mylanta II) 30 ml Q6H PRN ORAL dyspepsia 11/12/18 21:45 12/12/18 21:44 Dextrose (Dextrose 50%) 25 ml Q30M PRN IV Hypoglycemia 11/12/18 21:45 12/12/18 21:44 Dextrose (Dextrose 50%) 50 ml Q30M PRN IV Hypoglycemia 11/12/18 21:45 12/12/18 21:44 Dextrose/Sodium Chloride 1,000 ml @ 75 mls/hr [id number] IV 11/12/18 22:00 12/12/18 21:59 11/12/18 22:39 Diphenhydramine HCl (Benadryl) 25 mg Q6H PRN ORAL Itching/Pruritis 11/12/18 21:45 12/12/18 21:44 Heparin Sodium (Porcine) (Heparin 5000 units/ml) 5,000 units EVERY 12 HOURS SUBQ 11/13/18 09:00 12/13/18 08:59 Iopamidol (Isovue-300 100ml) 100 ml NOW PRN INJ Radiology Procedure 11/12/18 18:00 Ketorolac Tromethamine (Toradol 30mg) 30 mg Q6H PRN IV For Pain 11/12/18 23:00 11/17/18 22:59 11/13/18 00:22 Nitroglycerin (Ntg) 0.4 mg Q5M PRN SL Prn Chest Pain 11/12/18 21:45 12/12/18 21:44 Ondansetron HCl (Zofran) 4 mg Q6H PRN IVP Nausea & Vomiting 11/12/18 21:45 12/12/18 21:44 Pantoprazole (Protonix) 40 mg DAILY IVP 11/13/18 09:00 12/13/18 08:59 11/13/18 08:43 Polyethylene Glycol (Miralax) 17 gm HSPRN PRN ORAL Constipation 11/12/18 21:45 12/12/18 21:44 Temazepam (Restoril) 15 mg HSPRN PRN ORAL Insomnia 11/12/18 21:45 11/19/18 21:44 Assessment/Plan Problem List: (1) Abdominal pain Assessment & Plan: lower abdominal pain/ burning sensation leukocytosis - resolving no RLQ tenderness, rebound, or guarding. CT noted and similar to last year. improving today without intervention. -start clear liquids -AM labs -Abx for UTI as per ID -anticipate d/c tomorrow thank you ICD Codes: R10.9 - Unspecified abdominal pain SNOMED: [id number] Qualifiers: Qualified Codes: R10.30 - Lower abdominal pain, unspecified Bartolo Solis Nov 13, 2018 12:20
[2018-11-13] MEDS: Mylanta II UD 30ml ORAL PRN (12:58)
[2018-11-13] MEDS: D5 1/2NS 1,000 ML IV SCH (12:58)
--- NOTE | 2018-11-13 13:42 | NUR ---
NURSE NOTES: Patient tolerated clear liquid lunch. No nausea or vomiting. No pain exacerbation.
[2018-11-13] MEDS ORDERED: D5 1/2NS 1000ml IV ONE (15:22)
[2018-11-13 16:00] VITALS: BP 123/62
--- NOTE | 2018-11-13 16:53 | NUR ---
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 98.1 HR 59 RR 18 B/P 146/92 WBC 15.9 ABD/PEL CT= ACUTE APPENDICITIS IS: IV BOLUS NS X 1 LITER ZOFRAN IV PEPCID IV TORADOL IV ADMITTED TO MED/SURG8 MEED/SURG STATUS
--- NOTE | 2018-11-13 17:30 | History and Physical Report ---
DATE OF ADMISSION: 11/12/2018 DATE AND TIME SEEN: 11/13/2018 at 1 p.m. CONSULTANTS: 1. Bartolo Solis M.D. 2. Christi Omalley M.D. 3. Bon Arizmendi M.D. CHIEF COMPLAINT: Abdominal pain, nausea, vomiting, and appendicitis. BRIEF HISTORY: This is a 58-year-old female, who lives at home, presented with abdominal pain, crampy in mid epigastrium, slight nausea and vomiting. She came into [facility], diagnosed with appendicitis and admitted to medical floor for further treatment. Currently, calm in bed, feeling better. No complaint. REVIEW OF SYSTEMS: No chest pain. No shortness of breath. Slight nausea and vomiting. No diarrhea. PAST MEDICAL HISTORY: Hypertension. PAST SURGICAL HISTORY: Bilateral tubal ligation. ALLERGIES: Codeine, morphine, and contrast. MEDICATIONS: Heparin, pantoprazole, Ketoralac, Tylenol, Zofran, temazepam, and nitroglycerin. SOCIAL HISTORY: No smoking. No alcohol. No intravenous drug use. FAMILY HISTORY: Noncontributory. PHYSICAL EXAMINATION: GENERAL: Calm in bed, oriented x3, in no acute distress. VITAL SIGNS: Temperature is 98, pulse 62, respirations 19, and blood pressure 122/62. CARDIOVASCULAR: No murmur. LUNGS: Distant and clear. ABDOMEN: Bowel sounds positive. Nontender. Nondistended. EXTREMITIES: No cyanosis or edema. NEUROLOGIC: The patient moves all extremities, slightly weak. LABORATORY AND DIAGNOSTIC DATA: White count 11.8, hemoglobin and hematocrit 11/34, and platelets 254. Potassium 3.3. Glucose 109. Albumin 3.3, otherwise BMP is normal. PTT is 28. Urinalysis show 1+ leukocyte esterase. ASSESSMENT: 1. Urinary tract infection. 2. Appendicitis. 3. Abdominal pain. 4. Hypertension. PLAN: 1. Antibiotics per Infectious Disease. 2. Blood pressure and pain control. 3. Dietary followup. 4. CBC and BMP in the morning. 5. Discharge planning if cleared by team. Neil Reese D.O. DR: FELIX JOB#: [id number] CC:
--- NOTE | 2018-11-13 19:46 | NUR ---
HAND-OFF: Report given to CARMEL Sue.
[2018-11-13 20:00] VITALS: BP 98/56
--- NOTE | 2018-11-13 20:00 | NUR ---
NURSE NOTES: Received patient in bed, in calm mood. On RA, no SOB, no acute distress. A/O x 4, on Clear liquid diet, ambulatory. LAC IV intact, patent running IVF. Bed in lowest position, locked, alarms on. Call light in reach.
[2018-11-14] VITALS: BP 101/58
[2018-11-14] MEDS: D5 1/2NS 1,000 ML IV SCH ×2 (00:44→14:00)
[2018-11-14 04:00] VITALS: BP 107/54
[2018-11-14 06:39] LABS: BASOPHILS % (AUTO) 0.6 % (0.0-2.0); EOSINOPHILS % (AUTO) 5.6 % (0.0-3.0); HEMATOCRIT 34.7 % (37.0-47.0); HEMOGLOBIN 11.3 G/DL (12.0-16.0); LYMPHOCYTES % (AUTO) 32.7 % (20.0-45.0); MEAN CORPUSCULAR VOLUME 93 FL (80-99); MONOCYTES % (AUTO) 7.6 % (1.0-10.0); NEUTROPHILS % (AUTO) 53.5 % (45.0-75.0); PLATELET COUNT 258 K/UL (150-450); RED BLOOD COUNT 3.73 M/UL (4.20-5.40); RED CELL DISTRIBUTION WIDTH 11.8 % (11.6-14.8); WHITE BLOOD COUNT 6.3 K/UL (4.8-10.8)
[2018-11-14 07:02] LABS: ALANINE AMINOTRANSFERASE 25 U/L (12-78); ALBUMIN 3.2 G/DL (3.4-5.0); ALBUMIN/GLOBULIN RATIO 0.9 (1.0-2.7); ALKALINE PHOSPHATASE 59 U/L (46-116); ANION GAP 6 mmol/L (5-15); ASPARTATE AMINO TRANSFERASE 22 U/L (15-37); BLOOD UREA NITROGEN 10 mg/dL (7-18); CALCIUM 8.6 MG/DL (8.5-10.1); CARBON DIOXIDE 29 MMOL/L (21-32); CHLORIDE 106 MMOL/L (98-107); CREATININE 0.7 MG/DL (0.55-1.30); FERRITIN 154 NG/ML (8-388); POTASSIUM 3.4 MMOL/L (3.5-5.1); SODIUM 141 MMOL/L (136-145)
[2018-11-14 07:10] LABS: IRON 42 ug/dL (50-175); TOTAL IRON BINDING CAPACITY 205 ug/dL (250-450)
[2018-11-14 07:11] LABS: % IRON SATURATION 20 % (15-50)
--- NOTE | 2018-11-14 07:30 | NUR ---
HAND-OFF: Report given to Marvin BURT.
--- NOTE | 2018-11-14 07:40 | NUR ---
NURSE NOTES: WALKING ROUNDS DONE WITH OUTGOING RN. PATIENT UP AMBULATING IN ROOM.QUESTIONS ANSWERED. DISCUSSED PLAN OF CARE FOR THE DAY. VERBALIZED UNDERSTANDING. CALL LIGHT WITHIN REACH.
[2018-11-14 07:52] LABS: BILIRUBIN,TOTAL 0.5 MG/DL (0.2-1.0)
[2018-11-14 08:00] VITALS: BP 116/62
[2018-11-14] MEDS: Heparin 5000 units/ml inj SUBQ SCH (08:47)
[2018-11-14] MEDS: Pantoprazole Inj IVP SCH (08:47)
[2018-11-14] MEDS: Mylanta II UD 30ml ORAL PRN (08:47)
--- NOTE | 2018-11-14 09:04 | Infectious Diseases Prog Note ---
Assessment/Plan Assessment/Plan Gen: NAD, Some abd pain HEENT: NCAT, MMM, EOMI, PERRL, No Oral lesion, no scleral icterus NECK: full range of motion, supple, no meningismus, No LAD, No JVD LUNGS: CTAB, No W/C, No Accessory muscle use CARDS: RRR, S1, S2, No M/R/G, ABD: Soft, TTP B/L Lower quadrants, ND, No R/G, + BS, No HSM, No Masses : Deferred Ext: C/C/E, Pulses 2+ B/L (DP, Rad) NEURO: A/O x 3, Strength and Sensation Grossly intact SKIN: Warm/dry, No rashes Assessment/Plan Assessment/Plan 58 yo female with PMHx of Appendicits in 2018 and HTN who presented to the ED on 11/12/18 with abdominal pain. Appendicitis - Abdominal pain resolved Surgery on board CT 11/12/18 The appendix is markedly enlarged measuring 12 cm fluid-filled with periappendiceal inflammatory changes including some enhancement of the wall. No evidence for abscess or perforation. No Antibiotics per surgery request Per surgery this is not acute appendicitis PLAN - Monitor off abx as patient clinically stable - f/u surgery recs - Monitor CBC and Temps We will continue to follow the patient during this hospitalization. Subjective Allergies: Coded Allergies: CODEINE (Verified Allergy, Intermediate, 06/17/17) ITCHING PER PT MORPHINE (Verified Allergy, Unknown, 11/12/18) Uncoded Allergies: CONTRAST (Allergy, Unknown, 11/12/18) Subjective Patient feeling better today Afebrile Leukocytosis resolved without abx Objective Vital Signs Last 24 Hour Vital Signs Date Time Temp Pulse Resp B/P (MAP) Pulse Ox O2 Delivery O2 Flow Rate FiO2 11/14/18 08:00 98.4 61 18 116/62 (80) 97 11/14/18 04:00 98.0 64 17 107/54 (71) 97 11/14/18 00:00 98.2 58 19 101/58 (72) 96 11/13/18 21:00 Room Air 11/13/18 20:00 98.3 59 16 98/56 (70) 96 11/13/18 16:00 98.1 63 20 123/62 (82) 11/13/18 12:00 98.0 62 19 123/62 (82) 95 Height (Feet): 5 Height (Inches): 4.00 Weight (Pounds): 152 Objective Gen: NAD HEENT: NCAT, MMM, EOMI LUNGS: CTAB, No W CARDS: RRR, S1, S2, No M/R/G, ABD: Soft, NT, ND, + BS NEURO: A/O x 3, Strength and Sensation Grossly intact Laboratory Tests Test 11/14/18 04:45 White Blood Count 6.3 K/UL (4.8-10.8) Red Blood Count 3.73 M/UL (4.20-5.40) L Hemoglobin 11.3 G/DL (12.0-16.0) L Hematocrit 34.7 % (37.0-47.0) L Mean Corpuscular Volume 93 FL (80-99) Mean Corpuscular Hemoglobin 30.4 PG (27.0-31.0) Mean Corpuscular Hemoglobin Concent 32.6 G/DL (32.0-36.0) Red Cell Distribution Width 11.8 % (11.6-14.8) Platelet Count 258 K/UL (150-450) Mean Platelet Volume 8.1 FL (6.5-10.1) Neutrophils (%) (Auto) 53.5 % (45.0-75.0) Lymphocytes (%) (Auto) 32.7 % (20.0-45.0) Monocytes (%) (Auto) 7.6 % (1.0-10.0) Eosinophils (%) (Auto) 5.6 % (0.0-3.0) H Basophils (%) (Auto) 0.6 % (0.0-2.0) Reticulocyte Count 1.0 % (0.0-2.0) Prothrombin Time 10.2 SEC (9.30-11.50) Prothromb Time International Ratio 1.0 (0.9-1.1) Activated Partial Thromboplast Time 29 SEC (23-33) Sodium Level 141 MMOL/L (136-145) Potassium Level 3.4 MMOL/L (3.5-5.1) L Chloride Level 106 MMOL/L (98-107) Carbon Dioxide Level 29 MMOL/L (21-32) Anion Gap 6 mmol/L (5-15) Blood Urea Nitrogen 10 mg/dL (7-18) Creatinine 0.7 MG/DL (0.55-1.30) Estimat Glomerular Filtration Rate > 60 mL/min (>60) Glucose Level 102 MG/DL (74-106) Calcium Level 8.6 MG/DL (8.5-10.1) Iron Level 42 ug/dL (50-175) L Total Iron Binding Capacity 205 ug/dL (250-450) L Percent Iron Saturation 20 % (15-50) Unsaturated Iron Binding 163 ug/dL (112-346) Ferritin 154 NG/ML (8-388) Total Bilirubin 0.5 MG/DL (0.2-1.0) Aspartate Amino Transf (AST/SGOT) 22 U/L (15-37) Alanine Aminotransferase (ALT/SGPT) 25 U/L (12-78) Alkaline Phosphatase 59 U/L (46-116) Total Protein 6.6 G/DL (6.4-8.2) Albumin 3.2 G/DL (3.4-5.0) L Globulin 3.4 g/dL Albumin/Globulin Ratio 0.9 (1.0-2.7) L Carcinoembryonic Antigen Pending Vitamin B12 Level 546 PG/ML (193-986) Folate 19.3 NG/ML (8.6-58.9) Thyroid Stimulating Hormone (TSH) 3.536 uiU/mL (0.358-3.740) Free Thyroxine 0.93 NG/DL (0.76-1.46) Current Medications Medications (Trade) Dose Ordered Sig/Miguelito Route PRN Reason Start Time Stop Time Status Last Admin Dose Admin Acetaminophen (Tylenol) 650 mg Q4H PRN ORAL fever 11/12/18 21:45 12/12/18 21:44 Al Hydroxide/Mg Hydroxide (Mylanta II) 30 ml Q6H PRN ORAL dyspepsia 11/12/18 21:45 12/12/18 21:44 11/14/18 08:47 Dextrose (Dextrose 50%) 25 ml Q30M PRN IV Hypoglycemia 11/12/18 21:45 12/12/18 21:44 Dextrose (Dextrose 50%) 50 ml Q30M PRN IV Hypoglycemia 11/12/18 21:45 12/12/18 21:44 Dextrose/Sodium Chloride 1,000 ml @ 75 mls/hr [id number] IV 1/27/19 22:00 12/12/18 21:59 11/14/18 00:44 Diphenhydramine HCl (Benadryl) 25 mg Q6H PRN ORAL Itching/Pruritis 11/12/18 21:45 12/12/18 21:44 Heparin Sodium (Porcine) (Heparin 5000 units/ml) 5,000 units EVERY 12 HOURS SUBQ 11/13/18 09:00 12/13/18 08:59 11/13/18 21:02 Iopamidol (Isovue-300 100ml) 100 ml NOW PRN INJ Radiology Procedure 11/12/18 18:00 Ketorolac Tromethamine (Toradol 30mg) 30 mg Q6H PRN IV For Pain 11/12/18 23:00 11/17/18 22:59 11/13/18 16:20 Nitroglycerin (Ntg) 0.4 mg Q5M PRN SL Prn Chest Pain 11/12/18 21:45 12/12/18 21:44 Ondansetron HCl (Zofran) 4 mg Q6H PRN IVP Nausea & Vomiting 11/12/18 21:45 12/12/18 21:44 Pantoprazole (Protonix) 40 mg DAILY IVP 11/13/18 09:00 12/13/18 08:59 11/14/18 08:47 Polyethylene Glycol (Miralax) 17 gm HSPRN PRN ORAL Constipation 11/12/18 21:45 12/12/18 21:44 Temazepam (Restoril) 15 mg HSPRN PRN ORAL Insomnia 11/12/18 21:45 11/19/18 21:44 Brett Chamberlain MD Nov 14, 2018 09:04
--- NOTE | 2018-11-14 11:30 | NUR ---
NURSE NOTES: PATIENT GIVEN MYLANTA AND PROTONIX ORDERED. PATIENT STATES HER ABDOMEN BURNING HAS SUBSIDED WITH MEDICATION COMBINATION.
--- NOTE | 2018-11-14 11:32 | Surgery Progress Note ---
Surgery Progress Note Subjective Symptoms: improved, tolerating diet, voiding well, passing flatus Objective Last 24 Hour Vital Signs Date Time Temp Pulse Resp B/P (MAP) Pulse Ox O2 Delivery O2 Flow Rate FiO2 11/14/18 08:00 98.4 61 18 116/62 (80) 97 11/14/18 04:00 98.0 64 17 107/54 (71) 97 11/14/18 00:00 98.2 58 19 101/58 (72) 96 11/13/18 21:00 Room Air 11/13/18 20:00 98.3 59 16 98/56 (70) 96 11/13/18 16:00 98.1 63 20 123/62 (82) 11/13/18 12:00 98.0 62 19 123/62 (82) 95 I&O Intake and Output 11/13/18 11/14/18 19:00 07:00 Intake Total 1670 ml 1065 ml Balance 1670 ml 1065 ml Intake Oral 770 ml 240 ml IV Total 900 ml 825 ml # Voids 2 2 Drains: none Cardiovascular: RSR Respiratory: clear Abdomen: soft, non-tender, present bowel sounds, non-distended Extremities: no tenderness, no cyanosis Laboratory Tests Test 11/14/18 04:45 White Blood Count 6.3 K/UL (4.8-10.8) Red Blood Count 3.73 M/UL (4.20-5.40) L Hemoglobin 11.3 G/DL (12.0-16.0) L Hematocrit 34.7 % (37.0-47.0) L Mean Corpuscular Volume 93 FL (80-99) Mean Corpuscular Hemoglobin 30.4 PG (27.0-31.0) Mean Corpuscular Hemoglobin Concent 32.6 G/DL (32.0-36.0) Red Cell Distribution Width 11.8 % (11.6-14.8) Platelet Count 258 K/UL (150-450) Mean Platelet Volume 8.1 FL (6.5-10.1) Neutrophils (%) (Auto) 53.5 % (45.0-75.0) Lymphocytes (%) (Auto) 32.7 % (20.0-45.0) Monocytes (%) (Auto) 7.6 % (1.0-10.0) Eosinophils (%) (Auto) 5.6 % (0.0-3.0) H Basophils (%) (Auto) 0.6 % (0.0-2.0) Reticulocyte Count 1.0 % (0.0-2.0) Prothrombin Time 10.2 SEC (9.30-11.50) Prothromb Time International Ratio 1.0 (0.9-1.1) Activated Partial Thromboplast Time 29 SEC (23-33) Sodium Level 141 MMOL/L (136-145) Potassium Level 3.4 MMOL/L (3.5-5.1) L Chloride Level 106 MMOL/L (98-107) Carbon Dioxide Level 29 MMOL/L (21-32) Anion Gap 6 mmol/L (5-15) Blood Urea Nitrogen 10 mg/dL (7-18) Creatinine 0.7 MG/DL (0.55-1.30) Estimat Glomerular Filtration Rate > 60 mL/min (>60) Glucose Level 102 MG/DL (74-106) Calcium Level 8.6 MG/DL (8.5-10.1) Iron Level 42 ug/dL (50-175) L Total Iron Binding Capacity 205 ug/dL (250-450) L Percent Iron Saturation 20 % (15-50) Unsaturated Iron Binding 163 ug/dL (112-346) Ferritin 154 NG/ML (8-388) Total Bilirubin 0.5 MG/DL (0.2-1.0) Aspartate Amino Transf (AST/SGOT) 22 U/L (15-37) Alanine Aminotransferase (ALT/SGPT) 25 U/L (12-78) Alkaline Phosphatase 59 U/L (46-116) Total Protein 6.6 G/DL (6.4-8.2) Albumin 3.2 G/DL (3.4-5.0) L Globulin 3.4 g/dL Albumin/Globulin Ratio 0.9 (1.0-2.7) L Carcinoembryonic Antigen Pending Vitamin B12 Level 546 PG/ML (193-986) Folate 19.3 NG/ML (8.6-58.9) Thyroid Stimulating Hormone (TSH) 3.536 uiU/mL (0.358-3.740) Free Thyroxine 0.93 NG/DL (0.76-1.46) Plan Problems: (1) Abdominal pain Assessment & Plan: lower abdominal pain/ burning sensation leukocytosis - resolving no RLQ tenderness, rebound, or guarding. CT noted and similar to last year. improving today without intervention. leukocytosis resolved states feels better with mylanta and ppi -diet as tolerated -Abx for UTI as per ID -okay to d/c home from surgical standpoint thank you Bartolo Solis Nov 14, 2018 11:32
[2018-11-14 12:00] VITALS: BP 118/70
--- NOTE | 2018-11-14 13:25 | GI Progress Note ---
Assessment/Plan Problems: (1) Abdominal pain ICD Codes: R10.9 - Unspecified abdominal pain SNOMED: 79331955 Qualifiers: Qualified Codes: R10.30 - Lower abdominal pain, unspecified (2) Appendicitis ICD Codes: K37 - Unspecified appendicitis SNOMED: 63814903 Qualifiers: Qualified Codes: K37 - Unspecified appendicitis Status: stable Status Narrative Discussed with Dr. Leigh Assessment/Plan CT reviewed. Suggestive of appendicitis. No evidence of diverticulitis Normocytic anemia Prescription for Protonix daily given to patient, to follow-up with primary care. Follow-up with surgical recommendations, no intervention at this time. Patient had refused. monitor H&H, prn transfusions bowel regime Pain management GI cocktail as needed ppi fu labs Recommend EGD colonoscopy as outpatient The patient was seen and examined at bedside and all new and available data was reviewed in the patients chart. I agree with the above findings, impression and plan. (Patient seen earlier today. Signature stamp does not reflect patient encounter time.). - Peterson Leigh MD Subjective Subjective Abdominal pain resolved,States that the Protonix and Mylanta helped Objective Last 24 Hour Vital Signs Date Time Temp Pulse Resp B/P (MAP) Pulse Ox O2 Delivery O2 Flow Rate FiO2 11/14/18 09:00 Room Air 11/14/18 08:00 98.4 61 18 116/62 (80) 97 11/14/18 04:00 98.0 64 17 107/54 (71) 97 11/14/18 00:00 98.2 58 19 101/58 (72) 96 11/13/18 21:00 Room Air 11/13/18 20:00 98.3 59 16 98/56 (70) 96 11/13/18 16:00 98.1 63 20 123/62 (82) Intake and Output 11/13/18 11/14/18 19:00 07:00 Intake Total 1670 ml 1065 ml Balance 1670 ml 1065 ml Intake Oral 770 ml 240 ml IV Total 900 ml 825 ml # Voids 2 2 Laboratory Tests Test 11/14/18 04:45 White Blood Count 6.3 K/UL (4.8-10.8) Red Blood Count 3.73 M/UL (4.20-5.40) L Hemoglobin 11.3 G/DL (12.0-16.0) L Hematocrit 34.7 % (37.0-47.0) L Mean Corpuscular Volume 93 FL (80-99) Mean Corpuscular Hemoglobin 30.4 PG (27.0-31.0) Mean Corpuscular Hemoglobin Concent 32.6 G/DL (32.0-36.0) Red Cell Distribution Width 11.8 % (11.6-14.8) Platelet Count 258 K/UL (150-450) Mean Platelet Volume 8.1 FL (6.5-10.1) Neutrophils (%) (Auto) 53.5 % (45.0-75.0) Lymphocytes (%) (Auto) 32.7 % (20.0-45.0) Monocytes (%) (Auto) 7.6 % (1.0-10.0) Eosinophils (%) (Auto) 5.6 % (0.0-3.0) H Basophils (%) (Auto) 0.6 % (0.0-2.0) Reticulocyte Count 1.0 % (0.0-2.0) Prothrombin Time 10.2 SEC (9.30-11.50) Prothromb Time International Ratio 1.0 (0.9-1.1) Activated Partial Thromboplast Time 29 SEC (23-33) Sodium Level 141 MMOL/L (136-145) Potassium Level 3.4 MMOL/L (3.5-5.1) L Chloride Level 106 MMOL/L (98-107) Carbon Dioxide Level 29 MMOL/L (21-32) Anion Gap 6 mmol/L (5-15) Blood Urea Nitrogen 10 mg/dL (7-18) Creatinine 0.7 MG/DL (0.55-1.30) Estimat Glomerular Filtration Rate > 60 mL/min (>60) Glucose Level 102 MG/DL (74-106) Calcium Level 8.6 MG/DL (8.5-10.1) Iron Level 42 ug/dL (50-175) L Total Iron Binding Capacity 205 ug/dL (250-450) L Percent Iron Saturation 20 % (15-50) Unsaturated Iron Binding 163 ug/dL (112-346) Ferritin 154 NG/ML (8-388) Total Bilirubin 0.5 MG/DL (0.2-1.0) Aspartate Amino Transf (AST/SGOT) 22 U/L (15-37) Alanine Aminotransferase (ALT/SGPT) 25 U/L (12-78) Alkaline Phosphatase 59 U/L (46-116) Total Protein 6.6 G/DL (6.4-8.2) Albumin 3.2 G/DL (3.4-5.0) L Globulin 3.4 g/dL Albumin/Globulin Ratio 0.9 (1.0-2.7) L Carcinoembryonic Antigen Pending Vitamin B12 Level 546 PG/ML (193-986) Folate 19.3 NG/ML (8.6-58.9) Thyroid Stimulating Hormone (TSH) 3.536 uiU/mL (0.358-3.740) Free Thyroxine 0.93 NG/DL (0.76-1.46) Height (Feet): 5 Height (Inches): 4.00 Weight (Pounds): 152 General Appearance: WD/WN, no apparent distress, alert Cardiovascular: normal rate Respiratory/Chest: normal breath sounds, no respiratory distress Abdominal Exam: normal bowel sounds, non tender, soft Extremities: normal range of motion, non-tender Amy Hall NP Nov 14, 2018 13:25
--- NOTE | 2018-11-14 13:34 | General Progress Note ---
Assessment/Plan Problem List: (1) HTN (hypertension) ICD Codes: I10 - Essential (primary) hypertension SNOMED: 93667733 (2) UTI (urinary tract infection) ICD Codes: N39.0 - Urinary tract infection, site not specified SNOMED: 47861590 (3) Appendicitis ICD Codes: K37 - Unspecified appendicitis SNOMED: 78574271 Qualifiers: Qualified Codes: K37 - Unspecified appendicitis (4) Abdominal pain ICD Codes: R10.9 - Unspecified abdominal pain SNOMED: 27124126 Qualifiers: Qualified Codes: R10.30 - Lower abdominal pain, unspecified Status: stable, progressing Assessment/Plan abx gi/sx id/ f/u cbc bmp am dc if clear Subjective Constitutional: Reports: weakness Allergies: Coded Allergies: CODEINE (Verified Allergy, Intermediate, 06/17/17) ITCHING PER PT Wheat (Verified Allergy, Intermediate, diarrhea, 11/14/18) MORPHINE (Verified Allergy, Unknown, 11/12/18) Uncoded Allergies: CONTRAST (Allergy, Unknown, 11/12/18) All Systems: reviewed and negative except above Subjective ate ok Objective Last 24 Hour Vital Signs Date Time Temp Pulse Resp B/P (MAP) Pulse Ox O2 Delivery O2 Flow Rate FiO2 11/14/18 12:00 97.7 66 18 118/70 (86) 98 11/14/18 09:00 Room Air 11/14/18 08:00 98.4 61 18 116/62 (80) 97 11/14/18 04:00 98.0 64 17 107/54 (71) 97 11/14/18 00:00 98.2 58 19 101/58 (72) 96 11/13/18 21:00 Room Air 11/13/18 20:00 98.3 59 16 98/56 (70) 96 11/13/18 16:00 98.1 63 20 123/62 (82) Intake and Output 11/13/18 11/14/18 19:00 07:00 Intake Total 1670 ml 1065 ml Balance 1670 ml 1065 ml Intake Oral 770 ml 240 ml IV Total 900 ml 825 ml # Voids 2 2 Laboratory Tests 11/14/18 04:45: White Blood Count 6.3, Red Blood Count 3.73L, Hemoglobin 11.3L, Hematocrit 34.7L , Mean Corpuscular Volume 93, Mean Corpuscular Hemoglobin 30.4, Mean Corpuscular Hemoglobin Concent 32.6, Red Cell Distribution Width 11.8, Platelet Count 258, Mean Platelet Volume 8.1, Neutrophils (%) (Auto) 53.5, Lymphocytes (% ) (Auto) 32.7, Monocytes (%) (Auto) 7.6, Eosinophils (%) (Auto) 5.6H, Basophils (%) (Auto) 0.6, Reticulocyte Count 1.0, Prothrombin Time 10.2, Prothromb Time International Ratio 1.0, Activated Partial Thromboplast Time 29, Sodium Level 141, Potassium Level 3.4L, Chloride Level 106, Carbon Dioxide Level 29, Anion Gap 6, Blood Urea Nitrogen 10, Creatinine 0.7, Estimat Glomerular Filtration Rate > 60, Glucose Level 102, Calcium Level 8.6, Iron Level 42L, Total Iron Binding Capacity 205L, Percent Iron Saturation 20, Unsaturated Iron Binding 163 , Ferritin 154, Total Bilirubin 0.5, Aspartate Amino Transf (AST/SGOT) 22, Alanine Aminotransferase (ALT/SGPT) 25, Alkaline Phosphatase 59, Total Protein 6.6, Albumin 3.2L, Globulin 3.4, Albumin/Globulin Ratio 0.9L, Carcinoembryonic Antigen [Pending], Vitamin B12 Level 546, Folate 19.3, Thyroid Stimulating Hormone (TSH) 3.536, Free Thyroxine 0.93 Height (Feet): 5 Height (Inches): 4.00 Weight (Pounds): 152 General Appearance: alert EENT: normal ENT inspection Neck: normal alignment Cardiovascular: normal peripheral pulses, normal rate, regular rhythm Respiratory/Chest: chest wall non-tender, lungs clear, normal breath sounds Abdomen: normal bowel sounds, non tender, soft Extremities: normal inspection Edema: no edema noted Arm (L), no edema noted Arm (R), no edema noted Leg (L), no edema noted Leg (R), no edema noted Pedal (L), no edema noted Pedal (R), no edema noted Generalized Neurologic: responsive, motor weakness Skin: normal pigmentation, warm/dry Neil Reese DO Nov 14, 2018 13:34
[2018-11-14] MEDS ORDERED: PROTONIX40 MG ORAL (14:30)
--- NOTE | 2018-11-14 14:45 | NUR ---
NURSE NOTES: DISCHARGE ORDER RECEIVED. DC INSTRUCTIONS GIVEN AND EXPLAINED WITH RX. VERBALIZED UNDERSTANDING. ALL BELONGINGS WITH PATIENT. WILL F/U WITH PCP IF NEEDED.
[2018-11-14] MEDS ORDERED: D5 1/2NS 1000ml IV ONE (15:29)
--- NOTE | 2018-11-16 08:03 | Discharge Summary ---
Discharge Summary Discharge Summary _ DATE OF ADMISSION: 11/12/2018 DATE OF DISCHARGE: 11/14/2018 DISCHARGED BY: Dr. Reese REASON FOR ADMISSION: 58 years old female presented to emergency room for evaluation due to abdominal pain for 1 day. Pain described as burning , periumbilical , nonradiating , 7 out of 10 on a scale 1-10. Patient reported that pain seemed to be food related. Patient reported eating spicy food a day prior to onset of abdominal pain. She denied fever and chills. She denied nausea and vomiting. She denied diarrhea . Vital signs revealed no fever, stable hemodynamics srarus. Laboratory workup revealed leukocytosis WBC 15.7,stable hemoglobin and hematocrit. Stable coagulation profile ,stable electrolytes and renal parameters. Stable LFT. Urinalysis revealed no evidence of UTI. CT of the abdomen and pelvis revealed enlarged appendix with mild periappendiceal inflammation, consistent with acute appendicitis. However, similar findings were noted on prior study of . Diverticulosis without evidence of diverticulitis. Patient was admitted for further management. CONSULTANTS: ID specialist Dr. Arizmendi GI specialist Dr. Leigh surgery Dr. Solis [facility] COURSE: Patient admitted to medical surgical floor. Patient started on the IV fluids and intially kept n.p.o. Surgeon closely follow. Findings on CT scan were similar to the last year findings. Pain management was addressed. No right lower quadrant tenderness ,rebound or guarding on clinical examination. Leukocytosis started to trend down. Patient started on clear liquid diet. Symptomatic treatment provided. GI specialist closely followed. CT scan revealed no evidence of diverticulitis. Patient with evidence of normocytic anemia. Anemia workup revealed evidence of anemia of chronic disease. CEA was within normal limits. Hemoglobin and hematocrit were closely monitored with goal to keep hemoglobin above 7. Prior to discharge hemoglobin 11.3, hematocrit 34.7. Bowel regimen instituted. GI cocktail was on board as needed. GI specialist recommended EGD and colonoscopy as outpatient. DVT prophylaxis provided. Blood pressure was closely monitored and remained stable ID specialist follow. No evidence of urinary tract infection. No antibiotics per surgery request for appendicitis, since per surgery it was not an acute appendicitis. ID specialist recommended to monitor patient off antibiotics . Patient was closely monitored. Leukocytosis resolved . Patient afebrile. Pain controlled. Patient tolerated diet. Patient clinically stabilized and was ready for discharge home . Outpatient follow-up with GI recommended for endoscopy and colonoscopy. FINAL DIAGNOSES: Appendicitis Abdominal pain Hypertension DISCHARGE MEDICATIONS: See Medication Reconciliation list. DISCHARGE INSTRUCTIONS: Patient was discharged home. Follow up with primary care provider in one week. I have been assigned to dictate discharge summary for this account. I was not involved in the patient's management. Ale Palomo NP Nov 16, 2018 08:03
== END 2018-11-14 15:30 | disposition home or self-care (01) | DRG 395 ==
LOC: EMR 19:40 → 3E 20:49 → EDBEDREQ 21:01
DX: K37 Unspecified appendicitis (principal); I10 Essential (primary) hypertension; R10.9 Unspecified abdominal pain; D63.8 Anemia in other chronic diseases classified elsewhere; Z88.6 Allergy status to analgesic agent; Z91.041 Radiographic dye allergy status
CPT/HCPCS: 36415; 74176; 80053; 81003; 82150; 82378; 82607; 82728; 82746; 83540; 83550; 83690; 84439; 84443; 85025; 85044; 85610; 85730; 96361; 96374; 96375; 99285; J2405

== ENCOUNTER 2019-01-26 21:40 | Emergency (ER) | payer OTHER ==
[~2019-01-26] VITALS: Ht 157.5 cm; Wt 77.1 kg
[~2019-01-26 21:40] MED LIST changes: +LOSARTAN POTASS50 MG ORAL; +VITAMIN D1000 UNI1 ORAL
--- NOTE | 2019-01-26 21:59 | NUR ---
ED Nurse Note: pt walked in c/o right arm pain started last night, pt denies any recent injuries but reports she had surgery in nov 2018. pt reports it's shooting pain from right forearm to shoulder. no open wounds nor contusion but tenderness noted on right forearm area. CMS intact, will cont monitor.
[2019-01-26 22:04] VITALS: BP 165/71
[2019-01-26] MEDS ORDERED: IBUPROFEN600 MG ORAL (23:01)
[2019-01-26 23:08] VITALS: BP 145/97
--- NOTE | 2019-01-26 23:08 | NUR ---
ED Nurse Note: pt cleared to be d/c per ERMD, pt discharge and aftercare instruction provided w/ prescription, pt education done via discussion and handout, pt advised to follow up with pcp or return to ed if sx worsen or new sx develop, pt verbalized understanding and agrees with plan, vss, ambulatory w/ steady gait, left w/ all belongings. ID band removed.
--- NOTE | 2019-01-27 01:08 | Emergency Room Report ---
History of Present Illness General Chief Complaint: Upper Extremity Injury Source: Patient Present Illness HPI 58-year-old female presents ED for evaluation. Complaining of right arm and elbow pain. Started yesterday after she reached upward to grab an item off the shelf. [place] a pop in her elbow. Was seen at another ER earlier today and was given a Toradol shot. States that the pain did resolve and is coming back. Throbbing, 10 out of 10, nonradiating. Patient states she received x-rays but was not given report on them. No other aggravating relieving factors. Denies any other associated symptoms Allergies: Coded Allergies: CODEINE (Verified Allergy, Intermediate, 06/17/17) ITCHING PER PT Wheat (Verified Allergy, Intermediate, diarrhea, 11/14/18) MORPHINE (Verified Allergy, Unknown, 11/12/18) Uncoded Allergies: CONTRAST (Allergy, Unknown, 11/12/18) Patient History Past Medical History: HTN Past Surgical History: none Pertinent Family History: none Social History: Denies: smoking, alcohol use, drug use Last Menstrual Period: GOSIA Now: No Immunizations: UTD Reviewed Nursing Documentation: PMH: Agreed; PSxH: Agreed Nursing Documentation-PMH Past Medical History: No History, Except For Hx Cardiac Problems: Yes Hx Hypertension: Yes Hx Cancer: No Hx Gastrointestinal Problems: No Hx Neurological Problems: No Review of Systems All Other Systems: negative except mentioned in HPI Physical Exam Vital Signs Date Time Temp Pulse Resp B/P (MAP) Pulse Ox O2 Delivery O2 Flow Rate FiO2 01/26/19 21:49 97.9 65 16 165/71 95 Room Air Sp02 EP Interpretation: reviewed, normal General Appearance: no apparent distress, alert, GCS 15, non-toxic Head: normocephalic Eyes: bilateral eye normal inspection, bilateral eye PERRL ENT: normal ENT inspection Neck: normal inspection Respiratory: normal inspection Cardiovascular #1: normal inspection Gastrointestinal: normal inspection Genitourinary: normal inspection Musculoskeletal: normal range of motion, tender - R elbow Neurologic: alert, oriented x3, responsive, motor strength/tone normal, sensory intact, speech normal Psychiatric: normal inspection Skin: normal inspection Lymphatic: normal inspection Medical Decision Making Diagnostic Impression: Primary Impression: Elbow pain Qualified Codes: M25.521 - Pain in right elbow ER Course Hospital Course 58-year-old F presents to ED complaining of R elbow pain Differential diagnoses include: Fracture, dislocation, sprain, contusion Clinical course Patient placed on stretcher. After initial history and physical, I ordered pain medications and Xrays of R elbow Xrays read shows no acute fracture/dislocation. Discussed findings with patient. Likely tendinitis versus degenerative disease. I offered Robe wrap and patient declined. We'll discharge with ibuprofen and provide orthopedic referrals. Diagnosis -elbow pain Stable and discharged to home with prescription for Motrin. apply ice, keep elevated. weight bear as tolerated. Followup with PMD/ortho. Return to ED if symptoms recur or worsen Other X-Ray Diagnostic Results Other X-Ray Diagnostic Results : X-Ray ordered: R elbow # of Views/Limited Vs Complete: 3 View Indication: Pain EP Interpretation: Yes Interpretation: no dislocation, no soft tissue swelling, no fractures Impression: No acute disease Electronically Signed by: Electronically signed by Samuel Estrella MD Last Vital Signs Date Time Temp Pulse Resp B/P (MAP) Pulse Ox O2 Delivery O2 Flow Rate FiO2 01/26/19 23:08 97.9 68 16 145/97 98 Room Air Status: improved Disposition: HOME, SELF-CARE Condition: Stable Scripts Ibuprofen* (MOTRIN*) 600 Mg Tablet 600 MG ORAL Q8H PRN for For Pain, #30 TAB 0 Refills Prov: Samuel Estrella MD 01/26/19 [facility]errals: [facility] Open 24 hour /7 days a week by Appointment Only [address] [facility] [address] [facility] [id number] Patient Instructions: Elodia Elbow, [id number] Samuel Estrella MD Jan 27, 2019 01:08
== END 2019-01-26 23:09 | disposition home or self-care (01) ==
LOC: EMR 22:02
DX: M25.521 Pain in right elbow (principal); I10 Essential (primary) hypertension; Z88.5 Allergy status to narcotic agent; Z91.041 Radiographic dye allergy status
CPT/HCPCS: 99283